=== PATIENT | male | born 1985 ===

== ENCOUNTER 2021-01-27 21:21 | Emergency (ER) | payer SELFPAY ==
[2021-01-28] MEDS ORDERED: ACETAMINOPHEN 500 MG TAB PO ONE (03:10)
[2021-01-28] MEDS ORDERED: HYDROcodone/ACETAMINOPHEN 5-325 MG TAB PO ONE (03:27)
[2021-01-28] MEDS ORDERED: dexAMETHasone 20 MG/5 ML VIAL IV ONE (03:27)
[2021-01-28] MEDS ORDERED: KETOROLAC 30 MG/1 ML INJ IV ONE (03:27)
[2021-01-28] MEDS ORDERED: diphenhydrAMINE 50 MG/ML VIAL IV ONE (03:28)
--- NOTE | 2021-01-28 04:02 | XRay Report ---
RIGHT HAND 3 VIEW(S) INDICATION / CLINICAL INFORMATION: Swelling, pain COMPARISON: None available. FINDINGS: BONES / JOINT(S): No acute fracture or subluxation. No significant arthritis. SOFT TISSUES: Moderate soft tissue swelling of the ring and little fingers with extension to the dors um of the hand. No soft tissue gas or radiopaque foreign body. ADDITIONAL FINDINGS: None. Signer Name: Melvi Carr MD Signed: 01/28/2021 3:58 AM Workstation Name: [id number]
[2021-01-28 04:30] LABS: Basophils # (Auto) 0.1 K/mm3 (0.0-0.1); Basophils % (Auto) 0.6 % (0.0-1.8); Eosinophils # (Auto) 0.1 K/mm3 (0.0-0.4); Eosinophils % (Auto) 0.4 % (0.0-4.3); Hematocrit 35.1 % (35.5-45.6); Hemoglobin 11.7 gm/dl (11.8-15.2); Lymphocytes # (Auto) 1.4 K/mm3 (1.2-5.4); Lymphocytes % (Auto) 7.5 % (13.4-35.0); Mean Corpuscular HGB Conc 33 % (32-34); Mean Corpuscular Volume 99 fl (84-94); Monocytes # (Auto) 1.5 K/mm3 (0.0-0.8); Platelet Count 323 K/mm3 (140-440); Red Blood Count 3.55 M/mm3 (3.65-5.03); Red Cell Distribution Width 14.2 % (13.2-15.2)
[2021-01-28] MEDS ORDERED: PIPERACIL/TAZOBACTA 4.5/NS 100 4.5 GM/100 ML VIAL IV ONE (04:43)
[2021-01-28] MEDS ORDERED: VANCOMYCIN/NS 1 GM/250 ML 1 GM/250 ML BAG IV ONE (04:43)
[2021-01-28 04:49] LABS: Alanine Aminotransferase 7 units/L (7-56); Albumin 3.9 g/dL (3.9-5); BUN/Creatinine Ratio 16; Blood Urea Nitrogen 18 mg/dL (9-20); Calcium 8.9 mg/dL (8.4-10.2); Hemolysis Index 5
--- NOTE | 2021-01-28 05:25 | Emergency Department Report ---
ED Extremity Problem HPI - General Chief complaint: Extremity Injury, Upper Stated complaint: RT HAND SEVERELY SWOLLEN Source: patient Mode of arrival: Ambulatory Limitations: Physical Limitation - History of Present Illness Initial comments: Patient is a 35-year-old -M[place] male with no past medical history who presents to the ED with complaint of acute onset persistent severe right hand pain and swelling for the last 5 days after he was bitten by a yellowjacket ins ect. Patient also states that he also bumped his right hand against a metal cabinet at work at the same time so is unsure as to whether the pain and the swelling is from the metallic object injury or deformity yellowjacket bite. The patient states that the swelling and the pain got worse such that he is unable perform any active range of motion of the right hand especially the right lateral hand and right small finger and right ring finger. Patient states that he has been using his right hand at work but in the last 12 hours the pain and the swelling got worse at that he was unable perform any active range of motion of the right hand and decided come to the ED for evaluation. Patient denies fever, chills, nausea, vomiting, dizziness, syncope, numbness and tingling or weakness of right hand. MD Complaint: extremity pain (Raight hand pain and swelling), extremity swelling (right hand pain and swelling), joint swelling (right hand pain and swelling) -: Sudden, days(s) (5) Location: right, upper extremity (right hand) History of Same: No -: Yes arthralgia (right hand pain and swelling) Radiation: distal Severity scale (0 -10): 10 Quality: aching, sharp Consistency: constant Improves with: nothing Worsens with: weight bearing, walking, exertion, palpation Associated Symptoms: denies other symptoms, myalgias, arthralgias (right hand pain). denies: chest pain, shortness of breath - Related Data Allergies Allergy/AdvReac Type Severity Reaction Status Date / Time No Known Allergies Allergy Unverified 01/27/21 21:57 ED Review of Systems ROS: Stated complaint: RT HAND SEVERELY SWOLLEN Other details as noted in HPI Constitutional: denies: chills, fever Eyes: denies: eye pain, eye discharge, vision change ENT: denies: ear pain, throat pain Respiratory: denies: cough, shortness of breath, wheezing Cardiovascular: denies: chest pain, palpitations Endocrine: no symptoms reported Gastrointestinal: denies: abdominal pain, nausea, diarrhea Genitourinary: denies: urgency, dysuria Musculoskeletal: joint swelling (right hand swelling), arthralgia (right hand pain with swelling), myalgia. denies: back pain Skin: denies: rash, lesions Neurological: denies: headache, weakness, paresthesias Psychiatric: denies: anxiety, depression Hematological/Lymphatic: denies: easy bleeding, easy bruising ED Past Medical Hx - Past Medical History Previous Medical History?: No - Surgical History Past Surgical History?: Yes Additional Surgical History: [facility] ED Physical Exam - General Limitations: Physical Limitation General appearance: alert, in no apparent distress - Head Head exam: Present: atraumatic, normocephalic, normal inspection - Eye Eye exam: Present: normal appearance, PERRL, EOMI Pupils: Present: normal accommodation - ENT ENT exam: Present: normal exam, normal orophraynx, mucous membranes moist, TM's normal bilaterally, normal external ear exam - Neck Neck exam: Present: normal inspection, full ROM - Respiratory Respiratory exam: Present: normal lung sounds bilaterally. Absent: respiratory distress, wheezes, rales, rhonchi, chest wall tenderness, accessory muscle use, decreased breath sounds - Cardiovascular Cardiovascular Exam: Present: regular rate, normal rhythm, normal heart sounds. Absent: systolic murmur, diastolic murmur, rubs, gallop - GI/Abdominal GI/Abdominal exam: Present: soft, normal bowel sounds. Absent: tenderness, guarding, rebound, hyperactive bowel sounds, hypoactive bowel sounds - Extremities Exam Extremities exam: Present: normal inspection, tenderness (Palpable severe right hand tenderness with swelling and limited ROM of right fifth and ringf finger due to pain), normal capillary refill, joint swelling (right hand swelling and severe tenderness). Absent: full ROM (limited ROM due to pain), calf tenderness - Back Exam Back exam: Present: normal inspection, full ROM. Absent: tenderness, CVA tenderness (R), CVA tenderness (L), muscle spasm, paraspinal tenderness, vertebral tenderness - Neurological Exam Neurological exam: Present: alert, oriented X3, CN II-XII intact, normal gait, reflexes normal - Psychiatric Psychiatric exam: Present: normal affect, normal mood - Skin Skin exam: Present: warm, dry, intact, rash (swollen erythematous tender maculopapular fluctuant rash on right lateral hand with severe tenderness), erythema ED Course Vital Signs 01/27/21 21:56 Temperature 99.2 F Pulse Rate 66 Respiratory 18 Rate Blood Pressure 120/60 [Right] O2 Sat by Pulse 97 Oximetry - Reevaluation(s) Reevaluation #1: 01/28/21 05:15 I paged and discussed the patient's case with the ED attending physician Dr. Pratt who also evaluated the patient, reviewed the lab test results and advised that the patient be transferred to another facility for a specialist hand surgeon for further evaluation. Reevaluation #2: 01/28/21 06:03 I therefore paged and discussed the patient's case with the [facility] ([facility]) transfer center and discussed the patient's case with Dr. Gonsales, the Orthopedic Surgeon who accepted the patient transfer. I also discussed the p sharifa's case with Dr. Alcala the [facility] ED attending physician who also agreed with transfer. Patient was therefore transferred to the [facility] ED for further evaluation by Dr. Gonsales. ED Medical Decision Making - Lab Data Result diagrams: 01/28/21 03:51 01/28/21 03:51 - Radiology Data Radiology results: report reviewed, image reviewed [facility] [address] [place] [address] XRay Report Signed Patient: MARSHALL EASTMAN MR#: [id number] : 1985 Acct:[id number] Age/Sex: 35 / M ADM Date: 01/27/21 Loc: ED Attending Dr: Ordering Physician: YADIRA TAY Date of Service: 01/28/21 Procedure(s): XR hand 3+V RT Accession Number(s): [id number] cc: YADIRA TAY Fluoro Time In Minutes: RIGHT HAND 3 VIEW(S) INDICATION / CLINICAL INFORMATION: Swelling, pain COMPARISON: None available. FINDINGS: BONES / JOINT(S): No acute fracture or subluxation. No significant arthritis. SOFT TISSUES: Moderate soft tissue swelling of the ring and little fingers with extension to the dorsum of the hand. No soft tissue gas or radiopaque foreign body. ADDITIONAL FINDINGS: None. Signer Name: Melvi Carr MD Signed: 01/28/2021 3:58 AM Workstation Name: [id number] Transcribed By: DT Dictated By: Leon Carr MD Electronically Authenticated By: Leon Carr MD Signed Date/Time: 01/28/21357 DD/ 5 TD/TT: - Medical Decision Making This is a 35-year-old -[place] male with no past medical history who presents to the ED with complaint of acute onset persistent severe right hand pain and swelling for the last 5 days after he was bitten by a yellowjacket insect. Patient also states that he also bumped his right hand against a metal cabinet at work at the same time so is unsure as to whether the pain and the swelling is from the metallic object injury or deformity yellowjacket bite. The patient states that the swelling and the pain got worse such that he is unable perform any active range of motion of the right hand especially the right lateral hand and right small finger and right ring finger. Patient states that he has been using his right hand at work but in the last 12 hours the pain and the swelling got worse at that he was unable perform any active range of motion of the right hand and decided come to the ED for evaluation. In the ED, patient is alert and oriented x3 and is not in any distress. Patient is hemodynamically stable. Right hand x-ray showed no acute fractures or subluxation but soft tissue swelling on the right lateral hand affecting the right small finger and right ring finger. Lab test results were reviewed and showed acute leukocytosis of 19,000. The rest of the lab test results are nonactionable. Patient was treated for pain in the ED and also started on empirical antibiotic therapy with Zosyn 4.5 g IV and vancomycin 1 g IV x1. The patient case was discussed with the ED attending physician Dr. Kevin who also evaluated the patient and agree with the plan of care. Dr. Pratt advised of the patient be transferred to another facility with a hand specialist for further evaluation. I therefore paged and discussed the patient's case with the [facility] transfer center, and discussed the patient's case with the orthopedic surgeon Dr. Gonsales who accepted the patient transfer to [facility]. I also discussed the patient's case with the ED attending physician at [facility] Dr. Alcala who also agreed with the transfer. Patient was therefore transferred to [facility] ED for further evaluation by Dr. Gonsales. - Differential Diagnosis Right fracture; Cutaneous abscess; Cellulitis; Critical care attestation.: If time is entered above; I have spent that time in minutes in the direct care of this critically ill patient, excluding procedure time. ED Disposition Clinical Impression: Cutaneous abscess of right hand, Cellulitis of right hand Disposition: DC/TX-70 ANOTHER TYPE HLTHCARE Is pt being admited?: No Does the pt Need Aspirin: No Condition: Stable Instructions: Skin Abscess, [id number], Cellulitis, Adult, [id number] Referrals: PRIMARY CARE, [Primary Care Provider] - 3-5 Days Time of Disposition: 05:29 Print Language: UGANDAN
[2021-01-28 10:20] VITALS: BP 107/56
== END 2021-01-28 10:21 | disposition other institution (70) ==
LOC: ED 21:21
DX: L02.511 Cutaneous abscess of right hand (principal); L03.113 Cellulitis of right upper limb
CPT/HCPCS: 36415; 73130; 80053; 85025; 96365; 96367; 96375; 99285; J1100; J1200; J1885; J2543; J3370